=== PATIENT | male | born 1985 | race Caucasian/White ===

== ENCOUNTER 2022-05-20 01:05 | Emergency (ER) | payer OTHER ==
[~2022-05-20] VITALS: Ht 175.3 cm; Wt 99.8 kg
--- NOTE | 2022-05-20 02:03 | NUR ---
pt in room 4b c/o nausea and abd pain.
--- NOTE | 2022-05-20 02:11 | NUR ---
dr. Santo at bedside for MSe.
[2022-05-20] MEDS ORDERED: IV NORMAL SALINE 1000 ML BAG IV ONE (02:15)
[2022-05-20] MEDS ORDERED: OXYCODONE/APAP 5-325 MG TABLET PO ONE (02:15)
[2022-05-20] MEDS ORDERED: ONDANSETRON 4 MG/2 ML VIAL IV ONE (02:15)
[2022-05-20] MEDS ORDERED: IV NS 1000 ML 1,000 ML IV ONE (02:15)
[2022-05-20] MEDS ORDERED: OXYCODONE/APAP 5-325 MG TABLET ONE (02:20)
[2022-05-20] MEDS ORDERED: ONDANSETRON 4 MG/2 ML VIAL ONE (02:20)
[2022-05-20 02:45] LABS: HEMATOCRIT 40.7 % (36.7-47.1); MEAN CORPUSCULAR HEMOGLOBIN 31.4 uug (23.8-33.4); MEAN CORPUSCULAR VOLUME 94.2 fL (73.0-96.2); PLATELET COUNT (AUTO) 292 K/uL (152-348)
[2022-05-20 02:58] LABS: BILIRUBIN,DIRECT 0.1 mg/dL (0.0-0.2); BILIRUBIN,TOTAL 0.3 mg/dL (0.2-1.0); CREATININE 1.3 mg/dL (0.6-1.3); POTASSIUM 3.5 mmol/L (3.5-5.1); TOTAL PROTEIN, SERUM 7.5 g/dL (6.4-8.2)
[2022-05-20] MEDS ORDERED: MAGNESIUM SULFATE/D5W 200 ML ONE (03:07)
[2022-05-20] MEDS: MAGNESIUM SULFATE/D5W 100 ML IV SCH ×2 (03:09→03:27)
[2022-05-20] MEDS ORDERED: OXYC-128 PO (03:41)
[2022-05-20] MEDS ORDERED: ONDA4TAB5 PO (03:41)
--- NOTE | 2022-05-20 04:25 | NUR ---
Patient discharged to home in stable condition. Written and verbal after care instructions given. Patient verbalizes understanding of instructions. Stressed follow up or return to ER for worsening s/s.
[2022-05-20 04:26] VITALS: BP 152/70
[2022-05-20 04:43] LABS: *BILIRUBIN,URIN NEGATIVE (NEGATIVE); *CLARITY,URINE CLEAR (CLEAR); *COLOR,URINE YELLOW (YELLOW); *KETONES,URINE TRACE (NEGATIVE); *UROBILINOGEN,URINE 0.2 E.U./dl (NORMAL); LEUKOCYTE ESTERASE ,URINE TRACE (NEGATIVE); NITRITE, URINE NEGATIVE (NEGATIVE); PH,URINE 5.5 (5.0-8.0); UGLUCOSE NEGATIVE (NEGATIVE)
[2022-05-20 05:28] LABS: *BLOOD, URINE TRACE (NEGATIVE)
[2022-05-20 05:29] LABS: BACTERIA,URINE FEW /HPF (NONE SEEN); SQUAMOUS EPITHELIAL CELL,UR MODERATE /HPF (NONE SEEN)
== END 2022-05-20 04:26 | disposition home or self-care (01) ==
LOC: ER 01:15
DX: A08.4 Viral intestinal infection, unspecified (principal); E83.42 Hypomagnesemia
CPT/HCPCS: 99284; 96365; 96361; 96375; 80076; 80048; 81001; 83735; 85025; 36415; J3475; J2405; J7040; A4663